=== PATIENT | female | born 1960 | race Caucasian/White ===

== ENCOUNTER 2016-04-12 11:36 | Emergency (ER) | payer OTHER, SELFPAY ==
[2016-04-12] MEDS ORDERED: predniSONE 20 MG TAB ONE (12:08)
[2016-04-12] MEDS ORDERED: EPINEPHrine 1 MG/ML AMP ONE (12:08)
--- NOTE | 2016-04-12 13:10 | ERRECORD ---
[facility] EMERGENCY RECORD HPI RASH (15:27 LHOD) CHIEF COMPLAINT: Patient presents for evaluation of rash. HISTORIAN: History provided by patient. TIME COURSE: 4 DAYS OF ITCHY RASH OF FACE AND HANDS. APPROX. 1 WEEK AGO STUNG BY UNKNOWN INSECT ON RIGHT HAND, BUT NO SWELLING OR ITCHING AT THAT TIME. ALSO REDNESS / TENDER LEFT LOWER EYELID. DOES NOT WEAR CONTACTS. ROS (15:28 LHOD) CONSTITUTIONAL: Historian denies fever. EYES: LEFT LOWER EYELID TENDER. ENT: Historian denies drooling, REPORTS FEELS LIKE SOME DIFFICULTY SWALLOWING. CARDIOVASCULAR: Historian denies chest pain. RESPIRATORY: Historian denies shortness of breath. GI: Historian denies abdominal pain, denies nausea, denies vomiting. SKIN: Historian reports pruritis, reports rash. NEUROLOGIC: Historian denies headache. HEMO/LYMPHATIC: Historian denies easy bruising. ALLERGIC/IMMUNOLOGIC: Historian denies environmental allergies, denies hives. NOTES: All systems reviewed, negative except as described above. PAST MEDICAL HISTORY MEDICAL HISTORY: Flu vaccine not up to date, Past medical history includes history of hypertension. (11:56 SCHI) PSYCHIATRIC HISTORY: Psychiatric history includes, depression. (11:56 SCHI) SOCIAL HISTORY: Patient drinks socially, rarely, Patient denies drug use, Patient currently uses tobacco, smokes cigarettes. (11:56 SCHI) NOTES: Nursing records reviewed. (15:33 LHOD) KNOWN ALLERGIES No Known Drug Allergies CURRENT MEDICATIONS (11:58 SCHI) Lasix: TABLET : Strength - 20 mg : ORAL Patient Dose: 1 tab(s) Oral As Needed. lisinopril: TABLET : Strength - 20 mg : ORAL Patient Dose: 1 tab(s) Oral once a day. omeprazole: CAPSULE,DELAYED RELEASE (ENTERIC COATED) : Strength - 40 mg : ORAL Patient Dose: 20 mg Oral once a day. Zoloft: TABLET : Strength - 100 mg : ORAL &a-1R&a+25V*p+0X*a8096C*c202B*c15G*c2P*p-0X&a-25V&a+1R Name: IssaCata quinteros Michele : 1960 F55 MedRec: [id number] AcctNum: [id number] Prepared: Valentina Apr 12, 2016 15:37 by Interface Page 1 of 3 pMD [facility] EMERGENCY RECORD Patient Dose: 100 mg Oral once a day. BuSpar: TABLET : Strength - 10 mg : ORAL Patient Dose: Unknown. Ativan: TABLET : Strength - 0.5 mg : ORAL Patient Dose: Unknown. VITAL SIGNS VITAL SIGNS: BP: 165/118, Pulse: 84, Resp: 18, Temp: 97.2 (Tympanic), O2 sat: 96 on Room Air, Time: 04/12/2016 11:53. (11:53 SCHI) BP: 141/94, Pulse: 88, Resp: 20, O2 sat: 96 on RA, Time: 04/12/2016 12:45. (12:45 MDEB) PHYSICAL EXAM (15:30 LHOD) CONSTITUTIONAL: Vital signs reviewed, Patient afebrile, Pulse normal, Blood pressure, hypertensive, Respiratory rate normal, Patient appears non toxic, Patient alert and oriented to person, place and time. EYES: Eye exam included findings of, left eyelid red, left eyelid tender, LEFT LOWER EYELID MILD REDNESS AND SWELLING OF MEDIAL LACRIMAL DUCT /PUNCTUM, Pupils equally round and reactive to light, Extraocular muscles intact. ENT: Pharynx exam normal. NECK: Neck exam included findings of normal range of motion, Trachea midline. RESPIRATORY CHEST: Breath sounds clear. CARDIOVASCULAR: Cardiovascular exam included findings of heart rate regular rate and rhythm. ABDOMEN FEMALE: Abdominal exam included findings of abdomen nontender. UPPER EXTREMITY: BOTH HANDS MILD EDEMA WITHOUT RED STREAKING. PALMS BILATERALLY ERYTHEMATOUS. LOWER EXTREMITY: Lower extremity exam normal. NEURO: Neuro exam findings include patient oriented to person, place and time, Speech normal. SKIN: BILATERAL MALAR ERYTHEMA. LEFT LOWER EYELID MEDIAL ERYTHEMA AND TENDERNESS . NO URTICARIA OR OTHER BODY RASH ALTHOUGH PT FEELS ITCHY. MEDICATION ADMINISTRATION SUMMARY Drug Name: EPINEPHrine injection, Dose Ordered: 0.3 mL, Route: Subcutaneous, Status: Given, Time: 12:10 04/12/2016, Drug Name: predniSONE oral, Dose Ordered: 40 mg, Route: Oral, Status: Given, Time: 12:10 04/12/2016, Detailed record available in Medication Service section. PROBLEM LIST &a-1R&a+25V*p+0X*y4385V*c202B*c15G*c2P*p-0X&a-25V&a+1R Name: Cata Parsons : 1960 F55 MedRec: [id number] AcctNum: [id number] Prepared: Valentina Apr 12, 2016 15:37 by Interface Page 2 of 3 pMD [facility] EMERGENCY RECORD No recorded problems DIAGNOSIS (12:37 LHOD) FINAL: PRIMARY: ALLERGIC DERMATITIS OF FACE AND HANDS, ADDITIONAL: LEFT LOWER LACRIMAL DUCT INFECTION. PRESCRIPTION predniSONE oral: TABLET : 20 mg : ORAL : Quantity: 2 Unit: tab(s) Route: ORAL Schedule: once a day Dispense: 9 May substitute. Refills: No Refills . (12:37 LHOD) NOTES: No Refills. (12:37 LHOD) Blephamide: SUSPENSION, DROPS(FINAL DOSAGE FORM)(ML) : 10 %-0.2 % : OPHTHALMIC : Quantity: 3 Unit: gtt Route: OPHTHALMIC Schedule: 4 times a day Dispense: 1 May substitute. Refills: No Refills . (12:40 LHOD) NOTES: No Refills. (12:40 LHOD) DISPOSITION PATIENT: Disposition Type: Discharge, Disposition: *Discharge Home, Condition: Good. (12:37 LHOD) Patient left the department. (12:49 MDEB) Álvarez: LHSHAHBAZ=MD Molina, Willie RODRIGUEZ=STANISLAV Rea, Rae LOPES=STANISLAV Gutiérrez, Jaelinda &a-1R&a+25V*p+0X*b3376H*c202B*c15G*c2P*p-0X&a-25V&a+1R Name: Cata Parsons : 1960 F55 MedRec: [id number] AcctNum: [id number] Prepared: Valentina Apr 12, 2016 15:37 by Interface Page [address] [facility]
--- NOTE | 2016-04-12 13:14 | PICIS ---
[facility] EMERGENCY RECORD TRIAGE (11:56 SCHI) PATIENT: NAME: Cata Parsons, AGE: 55, GENDER: female, : Wed1960, TIME OF GREET: Sun Apr 12, 2016 11:37, PREFERRED LANGUAGE: Tajik, RACE: WHITE, ETHNICITY: Not or , ECODE BILLING MAP: [facility], Zip Code: [address], KG WEIGHT: 83.91, PHONE: , , , PERSON ID: [id number], PCP: N;ONE. (11:56 SCHI) TRIAGE NOTES: RASH ITCHING ALL OVER AND REDDNESS TO LEFT EYE, FOR 3 DAYS. (11:56 SCHI) COMPLAINT: ITCHY THROAT & SWOLLEN FACE. (11:56 SCHI) ADMISSION: URGENCY: 4 Non Urgent, ADMISSION SOURCE: Home, TRANSPORT: Walk-in, BED: ED -03. (11:56 SCHI) ASSESSMENT: Assessment: ALERT AND ORIENTED X 4, SKIN WARM AND DRY RESP EVEN AND UNLABORED,. (11:56 SCHI) PAIN: Patient complains of pain described as, burning, itching, miserable, on a scale 0-10 patient rates pain as 10, Location FACE HANDS AND FEET, Pain is constant. (11:56 SCHI) IMMUNIZATIONS: Notes: TAKING BENADRYL LAST DOSE 50MG 2 HR AGO. (11:56 SCHI) PROVIDERS: TRIAGE NURSE: Karoline Gutiérrez RN. (11:56 SCHI) VITAL SIGNS: BP 165/118, Pulse 84, Resp 18, Temp 97.2, (Tympanic), O2 Sat 96, on Room Air, Time 04/12/2016 11:53. (11:53 SCHI) KNOWN ALLERGIES No Known Drug Allergies CURRENT MEDICATIONS (11:58 SCHI) Lasix: TABLET : Strength - 20 mg : ORAL Patient Dose: 1 tab(s) Oral As Needed. lisinopril: TABLET : Strength - 20 mg : ORAL Patient Dose: 1 tab(s) Oral once a day. omeprazole: CAPSULE,DELAYED RELEASE (ENTERIC COATED) : Strength - 40 mg : ORAL Patient Dose: 20 mg Oral once a day. Zoloft: TABLET : Strength - 100 mg : ORAL Patient Dose: 100 mg Oral once a day. BuSpar: TABLET : Strength - 10 mg : ORAL Patient Dose: Unknown. Ativan: TABLET : Strength - 0.5 mg : ORAL Patient Dose: Unknown. VITAL SIGNS VITAL SIGNS: BP: 165/118, Pulse: 84, Resp: 18, Temp: 97.2 &a-1R&a+25V*p+0X*l6303R*c202B*c15G*c2P*p-0X&a-25V&a+1R Name: Cata Parsons : 1960 F55 MedRec: [id number] AcctNum: [id number] Prepared: Valentina Apr 12, 2016 15:38 by Interface Page 1 of 5 pMD [facility] EMERGENCY RECORD (Tympanic), O2 sat: 96 on Room Air, Time: 04/12/2016 11:53. (11:53 SCHI) BP: 141/94, Pulse: 88, Resp: 20, O2 sat: 96 on RA, Time: 04/12/2016 12:45. (12:45 MDEB) NURSING ASSESSMENT: SKIN (12:00 SCHI) CONSTITUTIONAL: Patient arrives ambulatory, Gait steady, History obtained from patient, Patient appears, anxious, Patient cooperative, Patient alert, Oriented to person, place and time, Skin warm, Skin dry, Skin normal in color, Mucous membranes pink, Mucous membranes moist, Patient is well-groomed, Patient complains of RASH, ITCHING AND BURNING SENSATION FOR 3 DAYS TO HANDS AND ARMS MOSTLY BUT ALL OVER, ALSO REPORTS THAT SHE IS OUT OF HER MEDS, ALSO HAS POSSIBLY STYE TO LEFT LOWER EYELID. PAIN: burning pain, itching pain, miserable pain, TOOK BENADRYL. SKIN: Skin assessment findings include skin warm, Skin dry, Skin normal in color, Notes: FINE RED BUMPS TO HANDS AND MOSTLY TO UPPER BODY. NURSING PROCEDURE: DISCHARGE NOTE (12:45 MDEB) DISCHARGE: Patient discharged to home, ambulating without assistance, driving self, unaccompanied, Summary of Care printed/ provided, Patient requested and was provided an electronic copy of Discharge Instructions, Transition record given to patient, Discharge instructions given to patient, Prescriptions given and instructions on side effects given, Above person(s) verbalized understanding of discharge instructions and follow-up care, Patient treated and evaluated by physician. BELONGINGS: Belongings remain with patient, Valuables remain with patient. NOTES: Emotional support needed and given, Patient tolerated procedure well. VITAL SIGNS: BP: 141, / 94, Pulse: 88, Resp: 20, O2 sat: 96, on: RA. NURSING PROCEDURE: NURSE NOTES (11:58 SCHI) NURSES NOTES: Notes: CAME HERE FROM [place] AND IS OUT OF HER MEDICATIONS. MEDICATION ADMINISTRATION SUMMARY Drug Name: EPINEPHrine injection, Dose Ordered: 0.3 mL, Route: Subcutaneous, Status: Given, Time: 12:10 04/12/2016, Drug Name: predniSONE oral, Dose Ordered: 40 mg, Route: Oral, Status: Given, Time: 12:04/12/2016, Detailed record available in Medication Service section. MEDICATION SERVICE (12:10 OD) EPINEPHrine injection: Order: EPINEPHrine injection &a-1R&a+25V*p+0X*n8975T*c202B*c15G*c2P*p-0X&a-25V&a+1R Name: Cata Parsons : 1960 F55 MedRec: [id number] AcctNum: [id number] Prepared: Valentina Apr 12, 2016 15:38 by Interface Page 2 of 5 pMD [facility] EMERGENCY RECORD (epinephrine) - Dose: 0.3 mL : Subcutaneous Ordered by: Willie Auguste MD Entered by: MD Valentina Hardwick Apr 12, 2016 12:04 , Acknowledged by: STANISLAV Ann Apr 12, 2016 12:07 Documented as given by: STANISLAV Ann Apr 12, 2016 12:10 Patient, Medication, Dose, Route and Time verified prior to administration. Amount given: 0.3 ML, Medication administered to right upper arm, Correct patient, time, route, dose and medication confirmed prior to administration, Patient advised of actions and side-effects prior to administration, Allergies confirmed and medications reviewed prior to administration, Advised not to ambulate without assistance, Patient in position of comfort, Side rails up, Cart in lowest position, Family at bedside. predniSONE oral: Order: predniSONE oral (prednisone) - Dose: 40 mg : Oral Ordered by: Willie Auguste MD Entered by: MD Valentina Hardwick Apr 12, 2016 12:04 , Acknowledged by: STANISLAV Ann Apr 12, 2016 12:07 Documented as given by: STANISLAV Ann Apr 12, 2016 12:10 Patient, Medication, Dose, Route and Time verified prior to administration. Amount given: 40 MG, Site: Medication administered P.O., Correct patient, time, route, dose and medication confirmed prior to administration, Patient advised of actions and side-effects prior to administration, Allergies confirmed and medications reviewed prior to administration, Patient in position of comfort, Side rails up, Cart in lowest position, Family at bedside. HPI RASH (15:27 LHOD) CHIEF COMPLAINT: Patient presents for evaluation of rash. HISTORIAN: History provided by patient. TIME COURSE: 4 DAYS OF ITCHY RASH OF FACE AND HANDS. APPROX. 1 WEEK AGO STUNG BY UNKNOWN INSECT ON RIGHT HAND, BUT NO SWELLING OR ITCHING AT THAT TIME. ALSO REDNESS / TENDER LEFT LOWER EYELID. DOES NOT WEAR CONTACTS. ROS (15:28 LHOD) CONSTITUTIONAL: Historian denies fever. EYES: LEFT LOWER EYELID TENDER. ENT: Historian denies drooling, REPORTS FEELS LIKE SOME DIFFICULTY SWALLOWING. CARDIOVASCULAR: Historian denies chest pain. RESPIRATORY: Historian denies shortness of breath. GI: Historian denies abdominal pain, denies nausea, denies vomiting. SKIN: Historian reports pruritis, reports rash. NEUROLOGIC: Historian denies headache. HEMO/LYMPHATIC: Historian denies easy bruising. &a-1R&a+25V*p+0X*d4517H*c202B*c15G*c2P*p-0X&a-25V&a+1R Name: Cata Parsons : 1960 F55 MedRec: [id number] AcctNum: [id number] Prepared: Valentina Apr 12, 2016 15:38 by Interface Page 3 of 5 pMD [facility] EMERGENCY RECORD ALLERGIC/IMMUNOLOGIC: Historian denies environmental allergies, denies hives. NOTES: All systems reviewed, negative except as described above. PAST MEDICAL HISTORY MEDICAL HISTORY: Flu vaccine not up to date, Past medical history includes history of hypertension. (11:56 SCHI) PSYCHIATRIC HISTORY: Psychiatric history includes, depression. (11:56 SCHI) SOCIAL HISTORY: Patient drinks socially, rarely, Patient denies drug use, Patient currently uses tobacco, smokes cigarettes. (11:56 SCHI) NOTES: Nursing records reviewed. (15:33 LHOD) PHYSICAL EXAM (15:30 LHOD) CONSTITUTIONAL: Vital signs reviewed, Patient afebrile, Pulse normal, Blood pressure, hypertensive, Respiratory rate normal, Patient appears non toxic, Patient alert and oriented to person, place and time. EYES: Eye exam included findings of, left eyelid red, left eyelid tender, LEFT LOWER EYELID MILD REDNESS AND SWELLING OF MEDIAL LACRIMAL DUCT /PUNCTUM, Pupils equally round and reactive to light, Extraocular muscles intact. ENT: Pharynx exam normal. NECK: Neck exam included findings of normal range of motion, Trachea midline. RESPIRATORY CHEST: Breath sounds clear. CARDIOVASCULAR: Cardiovascular exam included findings of heart rate regular rate and rhythm. ABDOMEN FEMALE: Abdominal exam included findings of abdomen nontender. UPPER EXTREMITY: BOTH HANDS MILD EDEMA WITHOUT RED STREAKING. PALMS BILATERALLY ERYTHEMATOUS. LOWER EXTREMITY: Lower extremity exam normal. NEURO: Neuro exam findings include patient oriented to person, place and time, Speech normal. SKIN: BILATERAL MALAR ERYTHEMA. LEFT LOWER EYELID MEDIAL ERYTHEMA AND TENDERNESS . NO URTICARIA OR OTHER BODY RASH ALTHOUGH PT FEELS ITCHY. EVENTS TRANSFER: Triage to Emergency Main ED -03. (Valentina Apr 12, 2016 11:56 SCHI) Removed from Emergency Main ED -03. (12:49 MDEB) PROBLEM LIST No recorded problems DIAGNOSIS (12:37 LHOD) FINAL: PRIMARY: ALLERGIC DERMATITIS OF FACE AND HANDS, &a-1R&a+25V*p+0X*y8576M*c202B*c15G*c2P*p-0X&a-25V&a+1R Name: Cata Parsons : 1960 F55 MedRec: [id number] AcctNum: [id number] Prepared: Valentina Apr 12, 2016 15:38 by Interface Page 4 of 5 pMD [facility] EMERGENCY RECORD ADDITIONAL: LEFT LOWER LACRIMAL DUCT INFECTION. DISPOSITION PATIENT: Disposition Type: Discharge, Disposition: *Discharge Home, Condition: Good. (12:37 LHOD) Patient left the department. (12:49 MDEB) INSTRUCTION (12:41 LHOD) DISCHARGE: CONJUNCTIVITIS, ALLERGIC, DERMATITIS CONTACT. FOLLOWUP: Follow up with Primary Care Physician in 2-3 days. SPECIAL: BENADRYL 25 MG EVERY 4 HOURS NEEDED FOR ITCHING. COOL COMPRESSES TO ITCHING AREAS. MOIST HEAT TO LEFT LOWER EYELID *RETURN IF WORSE Follow-up with your PCP. PRESCRIPTION predniSONE oral: TABLET : 20 mg : ORAL : Quantity: 2 Unit: tab(s) Route: ORAL Schedule: once a day Dispense: 9 May substitute. Refills: No Refills . (12:37 LHOD) NOTES: No Refills. (12:37 LHOD) Blephamide: SUSPENSION, DROPS(FINAL DOSAGE FORM)(ML) : 10 %-0.2 % : OPHTHALMIC : Quantity: 3 Unit: gtt Route: OPHTHALMIC Schedule: 4 times a day Dispense: 1 May substitute. Refills: No Refills . (12:40 LHOD) NOTES: No Refills. (12:40 LHOD) IMAGING WORK/SCHOOL RELEASE: Image captured from scanner. (12:43 MDEB) *DISCHARGE INSTRUCTIONS RECEIPT: Image captured from scanner. (12:46 MDEB) *SUPPLY CHARGE SHEET: Image captured from scanner. (12:46 MDEB) ADMIN DIGITAL SIGNATURE: STANISLAV Gutiérrez, Karoline. (15:21 SCHI) MD Auguste Lefayne. (15:33 OD) Álvarez: LHOD=MD Auguste Lefayne MDEB=STANISLAV Rea Melanie SCHI=STANISLAV Gutiérrez Slinda &a-1R&a+25V*p+0X*q4172F*c202B*c15G*c2P*p-0X&a-25V&a+1R Name: Cata Parsons : 1960 F55 MedRec: [id number] AcctNum: [id number] Prepared: Valentina Apr 12, 2016 15:38 by Interface Page 5 of 5 pMD [facility]TDD
== END 2016-04-12 12:45 | disposition home or self-care (01) ==
LOC: MADERS 11:36
DX: L23.9 Allergic contact dermatitis, unspecified cause (principal); H04.002 Unspecified dacryoadenitis, left lacrimal gland; I10 Essential (primary) hypertension; F32.9 Major depressive disorder, single episode, unspecified; F17.210 Nicotine dependence, cigarettes, uncomplicated; Z79.899 Other long term (current) drug therapy
CPT/HCPCS: 96372; J0171; J7506

== ENCOUNTER 2016-07-04 20:17 | Emergency (ER) | payer SELFPAY ==
[~2016-07-04 20:17] MED LIST: Iopamidol 370 76% 100 ML VIAL ONE; Sodium Chloride 0.9% 100 ML BAG ONE
[2016-07-04 20:52] LABS: Blood, Urine Moderate (Negative); Clarity Cloudy (Clear); Glucose, Urine (Dipstick) Negative (Negative); Leukocyte Large (Negative); Nitrite Negative (Negative); Protein, Urine (Dipstick) 30 mg/dL (Neg-Trace); pH, Urine 5.5 (5.0-9.0)
[2016-07-04 21:08] LABS: Bilirubin Small (Negative); Icto Negative (Negative); Specific Gravity, Urine 1.029 (1.002-1.036)
[2016-07-04 21:09] LABS: Bacteria/HPF 3+ HPF (None Seen); RBC/HPF 21-50 HPF (0-3); Transitional Epithelial 0-3 HPF (0-3); WBC/HPF 21-50 HPF (0-3); Yeast-All Forms 1+ HPF (None Seen)
[2016-07-04] MEDS ORDERED: Metoclopramide HCl 10 MG TAB ONE (21:10)
[2016-07-04] MEDS ORDERED: Ketorolac Tromethamine 30 MG/ML VIAL ONE (21:10)
[2016-07-04] MEDS ORDERED: Ondansetron HCl/PF 4 MG/2 ML Vial ONE (21:10)
[2016-07-04] MEDS ORDERED: Metoclopramide HCl 10 MG/2 ML VIAL ONE (21:11)
[2016-07-04 21:19] LABS: #Basophils 0.1 thou/uL (0.0-0.2); #Eosinphils 0.2 thou/uL (0.0-0.7); #Lymphocytes 3.5 thou/uL (1.20-3.40); #Monocytes 0.9 thou/uL (0.11-0.59); %Basophils 1.3 % (0.0-1.0); %Eosinophils 2.1 % (0.0-10.0); %Lymphocytes 32.4 % (21.0-51.0); %Neutrophils 56.2 % (42.0-75.0); Hemoglobin 14.9 g/dL (12.0-16.0); Mean Corpuscular HGB CONC 34.4 g/dL (32.0-36.0); Mean Corpuscular Hemoglobin 31.4 pg (27.0-31.0); Mean Corpuscular Volume 91.4 fl (81.0-99.0); Mean Platelet Volume 7.1 fL (7.4-10.4); Platelet Count 423 thou/uL (130-400); RBC Distribution Width 11.7 % (11.5-14.5); Red Blood Cell (RBC) Count 4.75 mill/uL (4.20-5.40); White Blood Cell (WBC) Count 10.7 thou/uL (4.8-10.8)
[2016-07-04 21:28] LABS: ALT (SGPT) 23 U/L (0-55); AST (SGOT) 22 U/L (5-34); Albumin 4.1 g/dL (3.5-5.0); Alkaline Phosphatase 110 U/L (40-150); Amylase 25 U/L (25-125); Anion Gap 16 mmol/L (10-20); BUN (Urea Nitrogen) 15 mg/dL (9.8-20.1); Bilirubin, Total 0.3 mg/dL (0.2-1.2); Calc. Creatinine Clearance 0 mL/min (70-130); Calcium 9.9 mg/dL (7.8-10.44); Carbon Dioxide 27 mmol/L (22-29); Chloride 103 mmol/L (98-107); Estimated GFR-MDRD 83; Globulin 3.7 g/dL (2.4-3.5); Glucose 90 mg/dL (70-105); Potassium 4.2 mmol/L (3.5-5.1); Protein, Total 7.8 g/dL (6.0-8.3); Sodium 142 mmol/L (136-145)
[2016-07-04 21:32] LABS: CRP (Inflammatory) 2.15 mg/dL (= or < 0.5)
[2016-07-04 22:06] LABS: Wet Prep Clue Cells Clue Cells Absent (None Seen); Wet Prep Trichomonas Trichomonas Absent (None Seen)
[2016-07-04 22:11] LABS: Acetaminophen Less than 3.0 mcg/mL (10.0-30.0); Alcohol Less than 10 mg/dL (Less than 10); Salicylate Less than 5.0 mg/dL (15.0-30.0)
[2016-07-04 22:12] LABS: Amphetamine Not Detected (NotDetected); Barbiturates Screen Not Detected (NotDetected); Benzodiazepine Screen Not Detected (NotDetected); Cocaine Metabolite Screen Not Detected (NotDetected); Medtox Control Line Valid? VALID (VALID); Methadone Not Detected (NotDetected); Methamphetamine Not Detected (NotDetected); Opiate Screen Not Detected (NotDetected); Oxycodone Screen Not Detected (NotDetected); Phencyclidine (PCP) Not Detected (NotDetected); THC/Cannabinoid Screen Detected (NotDetected); Tricyclic Screen Not Detected (NotDetected)
--- NOTE | 2016-07-04 23:23 | CT ---
CT ABDOMEN AND PELVIS WITH IV AND ORAL CONTRAST 07/04/16 HISTORY: Abdomen and pelvic pain. Symptoms of rectovaginal fistula. FINDINGS: The lung bases are clear. The liver, spleen, kidneys, adrenal glands and pancreas have a normal CT a ppearance. Calcifications present throughout the arterial structures. Nonspecific lymph nodes are sc attered throughout the retroperitoneum. Urinary bladder is decompressed. Enteric contrast distends the rectum and sigmoid colon. There is a very subtle focus of increased density within the right side of the upper vaginal canal. No direct c ommunication of the rectum to the vagina is apparent, however. IMPRESSION: 1. Small focus of hyperdense contrast within the vagina is evidence of a rectovaginal fistula, although the fistula is not directly visualized on this CT. 2. Atherosclerosis. POS: ANGIE
[2016-07-06 22:16] LABS: Chlamydia by PCR Not Detected (NotDetected); GC by PCR Not Detected (NotDetected)
== END 2016-07-05 01:06 | disposition short-term general hospital (02) ==
LOC: MADERS 20:17
DX: N82.3 Fistula of vagina to large intestine (principal); N39.0 Urinary tract infection, site not specified; I10 Essential (primary) hypertension; J45.909 Unspecified asthma, uncomplicated; F32.9 Major depressive disorder, single episode, unspecified; F41.9 Anxiety disorder, unspecified; F17.210 Nicotine dependence, cigarettes, uncomplicated
CPT/HCPCS: 36415; 74177; 80053; 80306; 80307; 81003; 81015; 82150; 83690; 85025; 86140; 87077; 87086; 87210; 87480; 87491; 87510; 87591; 87660; 96365; 96375; J1885; J2405; J2765; J7050

== ENCOUNTER 2016-07-19 15:07 | Emergency (ER) | payer OTHER ==
[~2016-07-19 15:07] MED LIST changes: -Sodium Chloride 0.9% 100 ML BAG ONE
[2016-07-19 16:19] LABS: #Basophils 0.1 thou/uL (0.0-0.2); #Lymphocytes 2.8 thou/uL (1.20-3.40); #Monocytes 0.5 thou/uL (0.11-0.59); #Neutrophils 5.2 thou/uL (1.40-6.50); %Basophils 1.4 % (0.0-1.0); %Eosinophils 0.4 % (0.0-10.0); %Monocytes 6.3 % (0.0-10.0); %Neutrophils 59.9 % (42.0-75.0); Mean Corpuscular Hemoglobin 31.2 pg (27.0-31.0); Mean Platelet Volume 7.1 fL (7.4-10.4); Platelet Count 430 thou/uL (130-400); RBC Distribution Width 11.6 % (11.5-14.5); Red Blood Cell (RBC) Count 5.14 mill/uL (4.20-5.40); White Blood Cell (WBC) Count 8.6 thou/uL (4.8-10.8)
[2016-07-19 16:35] LABS: Blood, Urine Trace (Negative); Clarity Clear (Clear); Glucose, Urine (Dipstick) Negative (Negative); Leukocyte Negative (Negative); Nitrite Negative (Negative); Protein, Urine (Dipstick) Negative (Neg-Trace); Urobilinogen 0.2 mg/dL (0.2-1.0); pH, Urine 5.5 (5.0-9.0)
[2016-07-19] MEDS ORDERED: Lorazepam 2 MG/ML VIAL ONE (16:35)
[2016-07-19 16:37] LABS: ALT (SGPT) 12 U/L (0-55); AST (SGOT) 14 U/L (5-34); Albumin 4.3 g/dL (3.5-5.0); Alkaline Phosphatase 106 U/L (40-150); Anion Gap 16 mmol/L (10-20); BUN (Urea Nitrogen) 16 mg/dL (9.8-20.1); CRP (Inflammatory) Less than 0.50 mg/dL (= or < 0.5); Calc. Creatinine Clearance 0 mL/min (70-130); Calcium 9.9 mg/dL (7.8-10.44); Carbon Dioxide 25 mmol/L (22-29); Chloride 103 mmol/L (98-107); Estimated GFR-MDRD 70; Glucose 122 mg/dL (70-105); Lipase 23 U/L (8-78); Potassium 3.7 mmol/L (3.5-5.1); Protein, Total 7.3 g/dL (6.0-8.3); Sodium 140 mmol/L (136-145)
[2016-07-19 16:37] LABS: Bacteria/HPF Rare-Few HPF (None Seen); Bilirubin Negative (Negative); Icto Negative (Negative); Other Microscopic Description C&S SET UP; RBC/HPF 0-3 HPF (0-3); Squamous Epithelial 0-3 HPF (0-3); WBC/HPF 0-3 HPF (0-3)
--- NOTE | 2016-07-19 16:46 | CT ---
CT BRAIN WITHOUT CONTRAST: History: Double vision, dizziness. FINDINGS: No evidence of acute infarct, hemorrhage, midline shift or abnormal extraaxial fluid collections are seen. The ventricular size is normal and the basilar cisterns patent. The bony calvarium is intact. The visualized paranasal sinuses and mastoid air cells are well aerated. IMPRESSION: No CT evidence of acute intracranial process. POS: [facility]
[2016-07-19 17:21] LABS: Wet Prep Clue Cells Clue Cells Absent (None Seen); Wet Prep Trichomonas Trichomonas PRESENT (None Seen)
[2016-07-19 17:22] LABS: Wet Prep Pathologist Review Spermatozoa Absent (None Seen); Wet Prep Spermatozoa 2nd Revie Agree with result (None Seen)
[2016-07-19] MEDS ORDERED: HYDROcodone/Acetaminophen 5/325 mg Tablet ONE (18:07)
[2016-07-19] MEDS ORDERED: Ketorolac Tromethamine 30 MG/ML VIAL ONE (18:43)
[2016-07-19] MEDS ORDERED: Azithromycin 250 MG TAB ONE (18:43)
[2016-07-19] MEDS ORDERED: Ondansetron HCl/PF 4 MG/2 ML Vial ONE (18:43)
[2016-07-19] MEDS ORDERED: Ciprofloxacin 500 MG TAB ONE (18:51)
[2016-07-19] MEDS ORDERED: Cephalexin 500 MG CAP ONE (18:51)
[2016-07-19] MEDS ORDERED: metroNIDAZOLE 250 MG TAB ONE (18:51)
[2016-07-19] MEDS ORDERED: cefTRIAXone\\ROCEPHIN 500 MG VIAL ONE (18:51)
--- NOTE | 2016-07-19 19:15 | CT ---
CT OF THE ABDOMEN AND PELVIS WITH IV CONTRAST: Indication: Abdominal pain. Comparison: 06-29-16 FINDINGS: No suspicious pulmonary nodule is evident. There are small subpleural pulmonary nodules within the r ight middle lobe. Liver is normal appearing. Pancreas and adrenal glands are normal appearing. Devorah mesentery is stab le. Pancreas and spleen appear within normal limits. The kidneys are normal appearing. There are moderate calcifications noted involving the abdominal aorta. There are scattered diverticula involving the colon. No active diverticulitis is grossly evident. No drainable fluid collection is noted. Small phlebolith is noted within the posterior pelvis. The visualized bladder is unremarkable. Uteru s and visualized adnexa are unremarkable. No free fluid is evident. No definite acute osseous abnormality is evident. There are scattered degenerative and osteoarthritic change. There are multiple Schmorl's nodes invol ving the lumbar spine. IMPRESSION: 1. No CT explanation for the patient's abdominal pain. 2. Stable small devorah mesentery. 3. Colonic diverticulosis. POS: [facility]
[2016-07-21 20:16] LABS: Chlamydia by PCR Not Detected (NotDetected); GC by PCR Not Detected (NotDetected)
== END 2016-07-19 19:20 | disposition home or self-care (01) ==
LOC: MADERS 15:07
DX: A59.01 Trichomonal vulvovaginitis (principal); J45.909 Unspecified asthma, uncomplicated; I10 Essential (primary) hypertension; F41.9 Anxiety disorder, unspecified; F32.9 Major depressive disorder, single episode, unspecified; F17.210 Nicotine dependence, cigarettes, uncomplicated; Z79.899 Other long term (current) drug therapy
CPT/HCPCS: 36415; 51701; 70450; 74177; 80053; 81003; 81015; 83690; 85025; 86140; 87086; 87210; 87491; 87591; 96374; 96375; A4353; J0696; J1885; J2060; J2270; J2405

== ENCOUNTER 2016-07-30 17:13 | Emergency (ER) | payer OTHER ==
[~2016-07-30 17:13] MED LIST changes: +Sodium Chloride 0.9% 1,000 ML BAG ONE
[2016-07-30 18:41] LABS: #Basophils 0.1 thou/uL (0.0-0.2); #Eosinphils 0.1 thou/uL (0.0-0.7); #Lymphocytes 3.3 thou/uL (1.20-3.40); #Monocytes 0.7 thou/uL (0.11-0.59); #Neutrophils 4.7 thou/uL (1.40-6.50); %Lymphocytes 37.3 % (21.0-51.0); %Monocytes 7.8 % (0.0-10.0); %Neutrophils 52.9 % (42.0-75.0); Hemoglobin 15.7 g/dL (12.0-16.0); Mean Corpuscular HGB CONC 34.4 g/dL (32.0-36.0); Mean Corpuscular Hemoglobin 31.5 pg (27.0-31.0); Mean Corpuscular Volume 91.6 fl (81.0-99.0); Mean Platelet Volume 7.1 fL (7.4-10.4); Platelet Count 304 thou/uL (130-400); RBC Distribution Width 11.7 % (11.5-14.5); Red Blood Cell (RBC) Count 4.98 mill/uL (4.20-5.40); White Blood Cell (WBC) Count 8.8 thou/uL (4.8-10.8)
[2016-07-30 18:52] LABS: Blood, Urine Moderate (Negative); Clarity Slightly Cloudy (Clear); Glucose, Urine (Dipstick) Negative (Negative); Leukocyte Negative (Negative); Nitrite Negative (Negative); Protein, Urine (Dipstick) Negative (Neg-Trace); Urobilinogen 0.2 mg/dL (0.2-1.0); pH, Urine 5.5 (5.0-9.0)
[2016-07-30 18:53] LABS: Prothrombin Time 13.7 SEC (12.0-14.7)
[2016-07-30 18:56] LABS: Bilirubin Negative (Negative); Icto Negative (Negative); Specific Gravity, Urine 1.033 (1.002-1.036)
[2016-07-30 18:58] LABS: WBC/HPF 0-3 HPF (0-3)
[2016-07-30 18:59] LABS: Bacteria/HPF 1+ HPF (None Seen); Crystals/HPF 2+ CA OXALATE HPF (Negative)
[2016-07-30 19:02] LABS: ALT (SGPT) 16 U/L (0-55); AST (SGOT) 18 U/L (5-34); Albumin 4.3 g/dL (3.5-5.0); Alkaline Phosphatase 102 U/L (40-150); Anion Gap 16 mmol/L (10-20); BUN (Urea Nitrogen) 10 mg/dL (9.8-20.1); Bilirubin, Total 0.8 mg/dL (0.2-1.2); Calc. Creatinine Clearance 0 mL/min (70-130); Calcium 9.8 mg/dL (7.8-10.44); Carbon Dioxide 24 mmol/L (22-29); Chloride 104 mmol/L (98-107); Estimated GFR-MDRD Greater than 90; Glucose 99 mg/dL (70-105); Lipase 17 U/L (8-78); Potassium 3.6 mmol/L (3.5-5.1); Protein, Total 7.3 g/dL (6.0-8.3); Sodium 140 mmol/L (136-145)
[2016-07-30] MEDS ORDERED: Lorazepam 2 MG/ML VIAL ONE (19:38)
[2016-07-30] MEDS ORDERED: Lidocaine Viscous Sol 2% 15 ml UD Cup ONE (19:40)
[2016-07-30] MEDS ORDERED: Donnatal Elixir 16.2 MG/5 ML UDCUP ONE (19:40)
[2016-07-30] MEDS ORDERED: Ketorolac Tromethamine 30 MG/ML VIAL ONE (19:40)
[2016-07-30] MEDS ORDERED: Ondansetron HCl/PF 4 MG/2 ML Vial ONE (19:40)
[2016-07-30] MEDS ORDERED: Mag-Al Plus 1200 MG/1200 MG/120 MG/30 ML UDCUP ONE (19:40)
--- NOTE | 2016-07-30 22:24 | CT ---
CT ABDOMEN WITH CONTRAST CT PELVIS WITH CONTRAST: DATE: 07/30/16 TIME: 9:48 p.m. HISTORY: Acute epigastric and bilateral upper quadrant abdominal pain. COMPARISON: 07/19/16, 07/07/16, and 07/04/16. TECHNIQUE: IV injection of iodinated contrast media: Administered. Oral contrast media: Administered. FINDINGS: In the left lateral subcutaneous fat at the left flank, at approximately the L4-5 level, there is a spherical, approximately 1 cm focal soft tissue attenuation mass. There is little or no surrounding fat stranding. This had a more flattened craniocaudal dimension on 07/19/16. This lesion had gas withi n it on 07/07/16. This was not present on 07/04/16. It does not contact the lateral, outer surface of the left lateral abdominal wall musculature. The urinary bladder, bilateral kidneys, pancreas, adrenals, liver, and spleen, are normal. The retro cecal appendix is very thin and small in caliber, and is normal. There are several mildly enlarged m esenteric lymph nodes. There are mildly enlarged periportal lymph nodes. There are mildly enlarged b ilateral inguinal lymph nodes. There are mildly enlarged bilateral external and internal iliac lymph nodes. These are all unchanged since the original CT of 07/04/16. There is no small bowel dilation. Several diverticula in the proximal sigmoid colon, without acute diverticulitis. No free fluid or fr ee air within the abdominal cavity or pelvic cavity. Normal small intestine. No abdominal aortic ane urysm. Atherosclerotic calcification of abdominal aorta and common iliac arteries. Lung bases are gr ossly clear. There is a small, approximately 1.5 cm cystic structure at the left pelvic inlet, proba tree related to the left ovary. The gallbladder is mildly distended, but there is no pericholecystic edema or gallbladder wall thickening. IMPRESSION: 1. A small, 1 cm, evolving mass in the subcutaneous, superficial fat at the left lateral flank. Based on its changing appearance, this could be related to a dermal injection, or a small focal inf ection. Exact etiology is uncertain, but this is not a neoplasm. 2. Atherosclerosis of abdominal aorta and iliac arteries. 3. Nonspecific mild lymphadenopathy of the mesentery, iliac chains, periportal regions, and dewey ateral inguinal regions. 4. Small, 1.5 cm left adnexal cystic structure. 5. No major acute findings of the abdominal cavity or pelvic cavity. AKILAH Hayes POS: [facility]
[2016-07-30] MEDS ORDERED: Morphine Sulfate 2 MG/ML SYRINGE ONE (23:23)
[2016-07-30] MEDS ORDERED: metroNIDAZOLE 250 MG TAB ONE (23:24)
[2016-07-30] MEDS ORDERED: Cephalexin 500 MG CAP ONE (23:24)
== END 2016-07-30 23:33 | disposition home or self-care (01) ==
LOC: MADERS 17:13
DX: I88.0 Nonspecific mesenteric lymphadenitis (principal); I10 Essential (primary) hypertension; J45.909 Unspecified asthma, uncomplicated; F41.9 Anxiety disorder, unspecified; F32.9 Major depressive disorder, single episode, unspecified; F17.210 Nicotine dependence, cigarettes, uncomplicated; Z79.2 Long term (current) use of antibiotics; Z79.899 Other long term (current) drug therapy
CPT/HCPCS: 74177; 80053; 81003; 81015; 82150; 83690; 85025; 85610; 85730; 87086; 96361; 96374; 96375; 96376; J1885; J2060; J2270; J2405; J7050